=== PATIENT | male | born 1985 | race Caucasian/White ===

== ENCOUNTER 2021-01-23 09:32 | Emergency (ER) | payer SELFPAY ==
[2021-01-23 09:40] VITALS: BP 156/80; PULSE 64; TEMP 36.3; O2SAT 100
[2021-01-23 09:48] LABS: Bilirubin Small (Negative); Blood Large (Negative); Clarity Sl Cloudy (Clear); Glucose Negative (Negative); Ketones 15 mg/dL (Negative); Leukocyte Esterase Negative (Negative); Nitrite Negative (Negative); Specific Gravity >= 1.030 (1.005-1.025); Urobilinogen 0.2 EU/dL (Up TO 0.2)
[2021-01-23 09:56] LABS: Bacteria Negative HPF (Negative); Casts 3-5 Hyaline LPF (Negative); Crystals Many Calcium Oxalate HPF (Negative); Epithelial Cells Few HPF (Negative); Mucus Heavy (Negative); RBC >50 HPF (0-2); WBC 0-2 HPF (0-5)
[2021-01-23 09:57] LABS: C & S Indicated? No
--- NOTE | 2021-01-23 10:03 | W.ED.GENAD ---
Discharge Plan Disposition Patient Disposition: HOME Condition: Stable Discharge Details Clinical Impression: Nephrolithiasis Primary Care Provider: None,None ED Provider: Jessie Merritt Home Meds and New Rx's Prescriptions: New tamsulosin [Flomax] 0.4 mg capsule 0.4 mg PO DAILY Qty: 7 RF: 0 Continued loratadine [Claritin] 10 mg Tablet 10 mg PO DAILY PRNRF: 0 Discharge Instructions Instructions: Kidney Stones (ED) Additional Instructions: Please encourage hydration to promote passage of stone. You are given your dose of Flomax here today, next dose to be due tomorrow. You may use Tylenol as needed for discomfort. You may augment this with the ketorolac as prescribed. Please take this only as prescribed. Do not take other anti-inflammatories such as ibuprofen, Aleve or Motrin with this. Referral for urology follow-up as has been sent as has referral to primary care. Please strain your urine and attempt to catch the stone and bring this to your urology follow-up. If you develop fever/chills, increased pain, inability stay hydrated or other new/worsening symptoms to seek care urgently once again Referrals: Darin Harrington MD [ [facility] STAFF PHYSICIAN] - Discharge Data Discharge Date/Time-TO BE ENTERED AT DEPARTURE: 01/23/21 12:51 Medical Decision Making Patient is a pleasant 35-year-old male presenting today with chief complaint of left-sided pain. He reports the pain was initially present 2 days ago. States that at that time the pain subsided after he removed a nicotine patch which she was thinking may have been the source of the discomfort. However, pain began again this morning. Indicates the left lateral abdomen is area of maximal discomfort. He denies any fevers or chills. No nausea or vomiting. Denies any change in bowel habit, had a normal bowel movement this morning. Denies any hematuria, dysuria, increased frequency or urgency. He has not had pain like this historically. He denies any penile or testicular pain. Has not noted any rash. Pain is not worse with p.o. intake or movement. Denies any alcohol use. Patient stopped smoking 1 week ago. On exam, patient appears uncomfortable but otherwise nontoxic. He has no CVA tenderness, no midline spinal pain. He has pain along the mid lateral abdomen on the left side. No peritoneal findings. Differential diagnosis at this time includes pancreatitis, diverticulitis, nephrolithiasis versus other. Spoke with radiologist who recommended renal colic CT as well as CT abdomen pelvis with contrast. Will give Toradol for discomfort. Labs reviewed. Patient has a white count pain. Fell H&H. +3.1, replenish this orally. Normal kidney function. Lipase within normal limits. Urine collection of blood but negative nitrate negative leukocyte esterase. CT reviewed by radiologist: FINDINGS: ABDOMEN: Lung Bases: Normal where visualized. Liver: Normal density. No measurable mass. Gallbladder and biliary tract: No radiodense calculus or dilation. Pancreas: Normal density, no abnormal calcifications or inflammatory process. Spleen: Normal. Kidneys: Normal size, contour and axis. 3 x 5 millimeter stone left ureteropelvic junction causing moderate left hydronephrosis. Mild delay in the left nephrogram. No perinephric collection. No right-sided calculi. No masses seen. Adrenal glands: No masses seen. Lymph nodes: Within normal limits. Abdominal Aorta: Abdominal portion non-dilated. PELVIS: Bladder: Symmetric distention, no gross wall thickening. Bowel: No obstruction or bowel wall thickening. Peritoneal cavity: No ascites, collection or mesenteric inflammatory response. Bones: Within normal limits. Reproductive organs: Within normal limits. IMPRESSION: Moderate left hydronephrosis secondary to a 3 x 5 millimeter stone at the ureteropelvic junction. Discussed findings with the patient. No evidence of stone at this time. His pain is well controlled with the Toradol. Encourage hydration. Will give first dose of Flomax here and have him continue with active stone. Nursing staff will give filter to be will to collect the stone. Will refer to urology. Patient does not have a local primary care, care management to assist with this as well. Patient also does not have insurance, have asked care management to assist with this and ensure that he has follow-up with community connections. Return precautions were discussed. All of his questions and concerns were addressed, he is in agreement with this plan. HPI General Mode of arrival: ambulatory. Date/Time Provider Initiated Documentation: 01/23/21 10:02. Limitations to Documentation: no limitations. Information obtained by: patient and RN notes reviewed. History of Present Illness 35 year old M presents to the emergency department with the chief complaint of abdominal discomfort, described as moderate, with intensity rated at 6. Quality is described as aching, and is localized to the abdomen. Patient reports no radiation. Patient started experiencing this day(s) (2) and it has been constant. No relieving factors improve symptom(s), No exacerbating factors reported . Patient notes no other symptoms.. Patient did receive the following treatments prior to arrival, none Related Data Home Medications Medication Instructions Recorded Confirmed loratadine [Claritin] 10 mg PO DAILY PRN 01/23/21 01/23/21 tamsulosin [Flomax] 0.4 mg PO DAILY #7 cap 01/23/21 Previous Rx's Medication Instructions Recorded tamsulosin [Flomax] 0.4 mg PO DAILY #7 cap 01/23/21 Allergies Allergy/AdvReac Type Severity Reaction Status Date / Time No Known Allergies Allergy Unverified 01/23/21 09:47 General Stated Complaint: Abd Prob KAREN: 3 Review of Systems Constitutional Constitutional: Reports as per HPI, Denies chills, Denies fatigue, Denies fever(s) and Denies headache(s) ENT Ears, Nose, Mouth, and Throat: Denies headache(s) Cardiovascular Cardiovascular: Reports as per HPI, Denies chest pain and Denies dyspnea Respiratory Respiratory: Reports as per HPI, Denies cough and Denies dyspnea Gastrointestinal Gastrointestinal: Reports as per HPI Genitourinary Genitourinary: Denies system reviewed and no additional complaints, except as documented (patient denies any change in urinary habits) Musculoskeletal Musculoskeletal: Reports as per HPI and Denies back pain Integumentary/Breasts Skin/Breast: Reports as per HPI and Denies rash Neurologic Neurologic: Reports as per HPI and Denies headache(s) Endocrine Endocrine: Denies fatigue [facility] Social History Smoking/Tobacco Use Status: Former Tobacco Use Quit Date: 01/16/21 Smoking risk assessment performed?: Yes Alcohol Intake: never Drug use: Daily Substance use type: marijuana Do you feel safe at home: Yes Do you feel safe in your relationship?: Yes Exam Const General: cooperative, healthy appearing, uncomfortable, no acute distress and well developed Nutritional Appearance: average body habitus and well nourished Orientation: alert and awake HENMT Head: normal to inspection Mouth: moist mucous membranes Resp Effort & Inspection: normal respiratory effort, able to speak in complete sentences and no respiratory distress Auscultation: clear to auscultation bilaterally, no rales, no rhonchi and no wheezes Cardio Rate: regular rate Rhythm: regular rhythm Heart Sounds: S1 normal and S2 normal GI Inspection: normal to inspection Palpation: soft, not firm, no guarding, no hernias, not rigid and tender in the RLQ and in the RUQ; not at McBurney's point, psoas sign negative and with no rebound tenderness Percussion: normal to percussion Auscultation: normal bowel sounds Back/Spine/Pelvis Back: no CVA tenderness Skin General skin exam: no rashes or lesions noted Trauma: no lacerations or abrasions Neuro General: patient alert and patient awake Cognition: normal cognition Speech: speech normal Gait: normal gait Psych Appearance: grossly normal and well kempt Mental Status: mental status grossly normal Speech and Movement: speech and movement normal Course Vital Signs Vital signs: Vital Signs Temperature 36.3 C L 01/23/21 09:40 Pulse 64 01/23/21 09:40 Blood Pressure 156/80 H 01/23/21 09:40 Pulse Oximetry 100 01/23/21 09:40 Temperature 36.3 C L 01/23/21 09:40 Temperature Source Temporal Artery Scan 01/23/21 09:40 Pulse 64 01/23/21 09:40 Respiratory Effort Non-Labored 01/23/21 09:46 Blood Pressure 156/80 H 01/23/21 09:40 Blood Pressure Position Sitting 01/23/21 09:40 Pulse Oximetry 100 01/23/21 09:40 Oxygen Delivery Method Room Air 01/23/21 09:40 Oxygen Flow Rate 0 01/23/21 09:40 Pain Level 5 01/23/21 10:00 Lab/Test Results Lab/Test Results: Laboratory Tests Range/Units 01/23/21 09:44 Urine Color (Yellow) Dark Yellow Urine Clarity (Clear) Sl Cloudy Urine pH (5-8) 5.0 Ur Specific Kimball (1.005-1.025) >= 1.030 H Urine Protein (Negative) mg/dL 100 H Urine Ketones (Negative) mg/dL 15 H Urine Blood (Negative) Large H Urine Nitrite (Negative) Negative Urine Bilirubin (Negative) Small H Urine Urobilinogen (Up TO 0.2) EU/dL 0.2 Ur Leukocyte Esterase (Negative) Negative Urine RBC (0-2) HPF >50 H Urine WBC (0-5) HPF 0-2 Ur Epithelial Cells (Negative) HPF Few Urine Crystals (Negative) HPF Many Calcium Oxalate Urine Bacteria (Negative) HPF Negative Urine Casts (Negative) LPF 3-5 Hyaline Urine Mucus (Negative) Heavy Ur Culture Indicated? No Urine Glucose (Negative) mg/dL Negative
--- NOTE | 2021-01-23 10:12 | DI.CT_ITS ---
Exam(s) CT ABDOMEN PELVIS WO/W EXAM: CT ABDOMEN PELVIS WO/W TECHNIQUE: Imaging Protocol: Axial computed tomography images with coronal and sagittal reformatted images were created and reviewed CONTRAST MATERIAL: Intravenous: Omnipaque 350 Contrast volume:structured data in ml Contrast route:I V - Oral:yes / no COMPARISON: No exams were available for comparison FINDINGS: ABDOMEN: Lung Bases: Normal where visualized. Liver: Normal density. No measurable mass. Gallbladder and biliary tract: No radiodense calculus or dilation. Pancreas: Normal density, no abnormal calcifications or inflammatory process. Spleen: Normal. Kidneys: Normal size, contour and axis. 3 x 5 millimeter stone left ureteropelvic junction causing mo derate left hydronephrosis. Mild delay in the left nephrogram. No perinephric collection. No right -sided calculi. No masses seen. Adrenal glands: No masses seen. Lymph nodes: Within normal limits. Abdominal Aorta: Abdominal portion non-dilated. PELVIS: Bladder: Symmetric distention, no gross wall thickening. Bowel: No obstruction or bowel wall thickening. Peritoneal cavity: No ascites, collection or mesenteric inflammatory response. Bones: Within normal limits. Reproductive organs: Within normal limits. IMPRESSION: Moderate left hydronephrosis secondary to a 3 x 5 millimeter stone at the ureteropelvic junction. RADIATION DOSE DELIVERED: 1,779.49mGy.cm Total DLP DATA REPOSITORY: All CT scans at this facility are submitted to the National Radiology Data Registry (NRDR) Dose Index Registry (DIR) with the [employer] ([employer]). RADIATION OPTIMIZATION: All CT scans at this facility use at least one of these dose optimization te chniques: automated exposure control; mA and/or kV adjustment per patient size (includes targeted exa ms where dose is matched to clinical indication); or iterative reconstruction.
[2021-01-23 10:24] LABS: Abs Immature Grans 0.11 10^3/uL (0.0-0.06); Absolute Basophil Count 0.05 10^3/uL (0.0-0.2); Absolute Eosinophil Count 0.02 10^3/uL (0.0-0.7); Absolute Lymphocyte Count 1.05 10^3/uL (1.2-3.4); Absolute Monocyte Count 0.71 10^3/uL (0.1-0.8); Basophils % 0.3; Eosinophils % 0.1; HCT 48.1 % (40.0-50.0); HGB 16.5 g/dL (13.5-17.5); Immature Grans % 0.7; Lymphocytes % 6.5; MCH 29.2 pg (27.0-33.0); MCHC 34.3 % (32.0-36.0); MPV 10.1 fL (8.0-11.0); Monocytes % 4.4; Nucleated RBC 0 %; Platelet Count 275 10^3/uL (130-400); RBC 5.66 10^6/uL (4.36-5.78); RDW 11.2 % (11.8-14.1); RDW-SD 34.6 fL; WBC 16.14 10^3/uL (4.4-10.8)
[2021-01-23] MEDS: Ketorolac 15 MG/ML VIAL IVP (10:24)
[2021-01-23] MEDS: Normal Saline 1,000 ML 1000 ML IV (10:25)
[2021-01-23 10:33] LABS: Lipase 65 U/L (73-393)
[2021-01-23 10:38] LABS: ALT 20 U/L (16-63); AST 16 U/L (15-37); Albumin 4.4 g/dL (3.4-5.0); Alkaline Phosphatase 76 U/L (46-116); Anion Gap 11.8 mmol/L (3-11); BUN 10 mg/dL (7-18); Bilirubin, Total 0.5 mg/dL (0.2-1.0); CO2 24.2 mmol/L (21.0-32.0); Calcium 9.5 mg/dL (8.5-10.1); Chloride 106 mmol/L (98-107); Glucose 127 mg/dL (74-106); Potassium 3.1 mmol/L (3.5-5.1); Sodium 142 mmol/L (136-145); Total Protein 7.7 g/dL (6.4-8.2)
[2021-01-23] MEDS: Potassium Chloride 20 MEQ TABCR 40 MEQ PO (11:18)
[2021-01-23] MEDS: Normal Saline Flush 10 ML SYR IVP ×2 (11:18→11:46)
[2021-01-23] MEDS: Omnipaque 350 MG/ML 100 ML BTL IJ (11:45)
[2021-01-23] MEDS: Normal Saline - Diluent 50 ML VIAL IV (11:46)
--- NOTE | 2021-01-23 12:43 | NUR.NOTE ---
referrral to cm and urology
[2021-01-23] MEDS: Tamsulosin 0.4 MG CAPCR PO (12:47)
[2021-01-23 12:51] VITALS: BP 139/92; PULSE 89; RESP 18; TEMP 37.2; O2SAT 98
== END 2021-01-23 12:51 | disposition home or self-care (01) ==
PROVIDERS: Emergency Provider Physician Assistant
DX: N13.2 Hydronephrosis with renal and ureteral calculous obstruction (principal)
CPT/HCPCS: 36415; 80053; 83690; 96361; 96374; 99285; 74178; 81003; 81015; 85025; 99284; J1885; J3490